=== PATIENT | female | born 1995 | race African-American/Black ===

== ENCOUNTER → 2022-07-31 11:28 | Outpatient (BNVA) | payer OTHER, SELFPAY | PROVIDERS: Visit Provider Physician Assistant | DX: S50.872A Other superficial bite of left forearm, initial encounter (principal); W50.3XXA Accidental bite by another person, initial encounter | CPT/HCPCS: 99203 ==

== ENCOUNTER → 2023-10-21 14:28 | Outpatient (BNVA) | payer OTHER, SELFPAY | PROVIDERS: Visit Provider Physician Assistant Medical | DX: S63.591A Other specified sprain of right wrist, initial encounter (principal); S93.491A Sprain of other ligament of right ankle, initial encounter; W01.190A Fall on same level from slipping, tripping and stumbling with subsequent striking against furniture, initial encounter | CPT/HCPCS: 73110; 73600; 99204 ==

== ENCOUNTER → 2023-10-28 14:56 | Outpatient (BNVA) | payer OTHER, SELFPAY | PROVIDERS: Visit Provider Physician Assistant Medical | DX: S63.591A Other specified sprain of right wrist, initial encounter (principal); S93.491A Sprain of other ligament of right ankle, initial encounter; W01.190A Fall on same level from slipping, tripping and stumbling with subsequent striking against furniture, initial encounter | CPT/HCPCS: 99213 ==

== ENCOUNTER → 2023-11-11 14:53 | Outpatient (BNVA) | payer OTHER, SELFPAY | PROVIDERS: Visit Provider Registered Nurse | DX: S63.591D Other specified sprain of right wrist, subsequent encounter (principal); S93.491D Sprain of other ligament of right ankle, subsequent encounter; W01.190D Fall on same level from slipping, tripping and stumbling with subsequent striking against furniture, subsequent encounter | CPT/HCPCS: 99213 ==

== ENCOUNTER → 2024-01-28 15:08 | Outpatient (BNVA) | payer OTHER, SELFPAY | PROVIDERS: Visit Provider Physician Assistant | DX: R60.1 Generalized edema (principal); M25.532 Pain in left wrist | CPT/HCPCS: 73110; 99204 ==

== ENCOUNTER → 2024-02-12 15:41 | Outpatient (BNVA) | payer OTHER, SELFPAY | PROVIDERS: Visit Provider Physician Assistant | DX: S60.212D Contusion of left wrist, subsequent encounter (principal); X58.XXXD Exposure to other specified factors, subsequent encounter; M54.50 Low back pain, unspecified | CPT/HCPCS: 99213 ==

== ENCOUNTER → 2024-03-03 15:34 | Outpatient (BNVA) | payer OTHER, SELFPAY | PROVIDERS: Visit Provider Physician Assistant | DX: S60.212D Contusion of left wrist, subsequent encounter (principal); X58.XXXD Exposure to other specified factors, subsequent encounter; M54.50 Low back pain, unspecified; Z02.79 Encounter for issue of other medical certificate | CPT/HCPCS: 99213 ==